=== PATIENT | male | born 1945 | race African-American/Black ===

== ENCOUNTER → 2020-03-01 | Outpatient (CLI) | payer OTHER ==
[~2020-03-01] MED LIST: CARDURA 8MG TAB8 MG PO; COREG12.5 MG PO; COZAAR100 MG PO; ELIQUIS 5MG PO; LIPITOR 40MG TA40 MG PO; MINOXIDIL 2.5 PO; PHOSLO667 MG PO; PLAVIX 75MG TAB75 MG PO; RENA-VITE1 TAB PO; ULTRAM 50MG TAB50 MG PO
== END | disposition still patient (30) ==
LOC: COL.LAB
DX: Z01.812 Encounter for preprocedural laboratory examination (principal); Z20.828 Contact with and (suspected) exposure to other viral communicable diseases

== ENCOUNTER → 2020-03-01 | Outpatient (CLI) | payer MEDICARE | LOC: COL.LAB 10:51 | DX: Z89.432 Acquired absence of left foot (principal) ==

== ENCOUNTER 2020-03-05 11:12 | Day surgery (SDC) | payer OTHER ==
[~2020-03-05] VITALS: Ht 182.9 cm; Wt 94.3 kg
[2020-03-05 12:28] VITALS: BP 181/68; PULSE 73; TEMP 97.8
[2020-03-05] MEDS ORDERED: PLAVIX 75MG TAB75 MG PO (12:34)
[2020-03-05] MEDS ORDERED: ULTRAM 50MG TAB50 MG PO (12:34)
[2020-03-05] MEDS ORDERED: LIPITOR 40MG TA40 MG PO (12:35)
[2020-03-05] MEDS ORDERED: RENA-VITE1 TAB PO (12:35)
[2020-03-05] MEDS ORDERED: CARDURA 8MG TAB8 MG PO (12:36)
[2020-03-05] MEDS ORDERED: COREG12.5 MG PO (12:37)
[2020-03-05] MEDS ORDERED: COZAAR100 MG PO (12:39)
[2020-03-05] MEDS ORDERED: MINOXIDIL 2.5 PO (12:41)
[2020-03-05] MEDS ORDERED: ELIQUIS 5MG PO (12:42)
[2020-03-05] MEDS ORDERED: PHOSLO667 MG PO (12:42)
--- NOTE | 2020-03-05 12:44 | NUR ---
LAURA CROSS PA INTO ANNIE SURGICAL EXTREMITY
[2020-03-05 16:10] VITALS: BP 153/53; PULSE 73; TEMP 97.6
[2020-03-05 16:17] VITALS: BP 161/59; PULSE 73
[2020-03-05 16:30] VITALS: BP 160/61; PULSE 80
[2020-03-05 16:45] VITALS: BP 152/53; PULSE 81
[2020-03-05 17:00] VITALS: BP 155/54; PULSE 77
--- NOTE | 2020-03-05 18:06 | NUR ---
PT RETURNED FROM PACU INTO BAY#6. PT ALERT AND SLEEPY. STATES PAIN IS AT A '6' ON 0-10 SCALE. LUNGS CLEAR WITH DIMINISHED BASES. HRR, BOWEL SOUNDS PRESENT. DENIES NAUSEA AND VOMITING AT THIS TIME. DRESSING DRY TO LEFT FOOT. WILL CONT TO MONIOR PROGRESSION.
--- NOTE | 2020-03-05 18:11 | NUR ---
PT STATES,' I AM NOT HUNGRY AND I DONT WANT TO EAT OR DRINK ANYTHING'. HE DID AGREE TO A COCA COLA OVER ICE, REFUSES FOOD AND STATES HE ISNT NAUSEATED NOR FEELS LIKE VOMITING. CONTINUES TO FEEL ALITTLE SLEEPY, ANSWERS QUESTIONS APPROPRIATELY. VSS, WILL CONT TOO MONITOR PROGRESS, DRESSING REMAINS DRY AND INTACT.
--- NOTE | 2020-03-05 18:21 | NUR ---
PT TOLERATED COLA WELL WITHOUT NAUSEA AND VOMITING. PT DENIES PAIN AT THIS TIME. DRESSING REMAINS DRY AND INTACT. VSS. DAUGHTER AT PT BEDSIDE, THEY ARE TALKING. DENIES NEEDS. WILL MONITOR.
--- NOTE | 2020-03-05 18:25 | NUR ---
POST-OP INSTRUCTIONS GIVEN TO PT AND HIS DAUGHTER. PT DENIES QUESTIONS. APPT WAS VERIFIED WITH DR. RUELAS OFFICE. DAUGHTER STATED THAT SHE WOULD CALL TOMORROW HE WAS TO BE SEEN IN ONE WEEK AND NOT 2. PT CONTINUES TO DENY PAIN AT THIS TIME. DENIES NAUSEA OR VOMITING. TOLERATED FLUIDS WELL. IV DC'D PER RIGHT FOREARM. PT TOLERATED WELL. PT PIVOTED X1 ASSIST TO WC. PT WAS TAKEN OUT TO FAMILY VEHICLE AND WITH 2X ASSIST PIVOTED ON LEFT HEEL. PT TOLERATED WELL. SCRIPTS FOR ATB AND PAIN MEDS WERE GIVEN TO PT AND DAUGHTER TO FILL.
--- NOTE | 2020-03-05 19:27 | NUR ---
PT LEFT DISCHARGE INSTRUCTIONS AND PRESCRIPTIONS HERE AT HOSPITAL. PT AND DAUGHTER NOTIFIED. DR RUELAS NOTIFIED. CALLED KEFLEX 500MG 1 PO QID TO [facility] IN [place]. PT DAUGHTER TO [employer] ROOM ATTENDANT ATB. DR RUELAS ADVISED TO TAKE TRAMADOL 50MG ALREADY IN PT POSSESSION. DR RUELAS STATED THAT PT CAN CALL [facility] IN THE MORNING IF NEEDING SOMETHING STRONGER FOR PAIN. PT DAUGHTER ASKED IF WE CAN MAIL DISCHARGE INSTRUCTIONS TO PT. LEFT MESSAGE ON CHART. VERBALIZED THE ONLY CHANGE WAS THE PO ANTIBIOTIC, KEFLEX. AND THE APPT ON February. SHE STATED SHE WOULD CALL AND CHANGE THAT APPOINTMENT TO NEXT WEEK.
== END 2020-03-05 17:15 | disposition home or self-care (01) ==
LOC: SDCO 11:12
DX: E11.52 Type 2 diabetes mellitus with diabetic peripheral angiopathy with gangrene (principal); I96 Gangrene, not elsewhere classified; I48.91 Unspecified atrial fibrillation; I12.9 Hypertensive chronic kidney disease with stage 1 through stage 4 chronic kidney disease, or unspecified chronic kidney disease; E11.22 Type 2 diabetes mellitus with diabetic chronic kidney disease; N18.9 Chronic kidney disease, unspecified; M48.061 Spinal stenosis, lumbar region without neurogenic claudication; E78.00 Pure hypercholesterolemia, unspecified; M85.872 Other specified disorders of bone density and structure, left ankle and foot; N40.0 Benign prostatic hyperplasia without lower urinary tract symptoms; Z99.2 Dependence on renal dialysis; Z89.511 Acquired absence of right leg below knee; Z95.1 Presence of aortocoronary bypass graft; Z90.79 Acquired absence of other genital organ(s); Z88.8 Allergy status to other drugs, medicaments and biological substances
CPT/HCPCS: J0690; J2370; J2405; J2704; J3010; J7030